=== PATIENT | female | born 1960 | race Caucasian/White ===

== ENCOUNTER → 2017-02-20 | Outpatient (CLI) | payer BC ==
[~2017-02-20] MED LIST: ALEVE220 MG PO; PREMPRO 0.3 MG1 EACH PO
== END ==
LOC: ULTRA 08:52
DX: R22.32 Localized swelling, mass and lump, left upper limb (principal)

== ENCOUNTER → 2021-01-22 | Outpatient (CLI) | payer BC, OTHER | LOC: MRI 10:06 | PROVIDERS: ATTEND Family Medicine | DX: M47.26 Other spondylosis with radiculopathy, lumbar region (principal); M51.16 Intervertebral disc disorders with radiculopathy, lumbar region; M48.061 Spinal stenosis, lumbar region without neurogenic claudication; M47.817 Spondylosis without myelopathy or radiculopathy, lumbosacral region; M51.37 Other intervertebral disc degeneration, lumbosacral region; M79.606 Pain in leg, unspecified; R29.898 Other symptoms and signs involving the musculoskeletal system ==

== ENCOUNTER → 2021-01-26 | Outpatient (CLI) | payer BC ==
[~2021-01-26] VITALS: Ht 170.2 cm; Wt 66.7 kg
[~2021-01-26] MED LIST changes: +CLARITIN10 M2 PO; +TERBINAFINE HC250 MG PO; +VITAMIN D3125 MC1 PO
--- NOTE | ~2021-01-26 | HPC ---
[facility] [place] [address] PAIN MANAGEMENT CONSULTATION Name: STACIE CARLIN Room #: REG [place] Sams.#: [id number] Admission: 01/26/21 Attend Phys: Jeremiah Galvan DO Discharge: Date of : 56 Report #: [id number] THIS REPORT FOR: cc: Noble Stratton MD, Rene P. MD Johnson, James E. DO ~ DOC #: [id number] cc: LIZANDRO Dumas DO DATE OF SERVICE: 01/26/2021 REFERRING PHYSICIAN: Colleen Wetzel NP CHIEF COMPLAINT: Low back pain, right lower extremity pain with paresthesias. HISTORY OF PRESENT ILLNESS: As you know, the patient is a very pleasant 60-year-old female who reports acute onset of low back pain, right lower extremity pain with paresthesias, presented on 12/24/2020. The patient denies any specific injury or trauma, but believes that her symptoms may have occurred after lifting 50 bags of mulch and 20 pounds of dirt while doing landscaping at her home. She states that after lifting the mulch, she began experiencing some burning sensation in the lower portion of back but continued to participate in activities, lifting the dirt, which then led to low back and right lower extremity symptoms. The patient states that intermittently over the past couple of years, she sought chiropractic manipulation about every 4-5 months to address this burning sensation she has had in the back. It resolves with this treatment. Unfortunately, chiropractic manipulation did not affect her current symptoms. She sought evaluation through her nurse practitioner, Colleen Wetzel, who referred the patient on to our service to undergo a lumbar epidural injection under fluoroscopic guidance. The patient did undergo imaging of the lumbar region which showed no significant changes from previous evaluations in 2009. The patient reports today her pain is continuous. She describes the pain as burning, throbbing, numbness and tingling. Places current pain score at 4/10, daily average of 4/10, worst pain is 9/10. The patient states the pain is exacerbated with cardio walking, improves with no cardio walking. She states that she can do every activity except for this high active walking pattern. She has been referred to our service to discuss interventional treatment options to address her recurrent lumbar radicular symptoms without changes on her MRI. PAST MEDICAL HISTORY: Seasonal allergies. PAST SURGICAL HISTORY: None. SOCIAL HISTORY: The patient denies tobacco, IV or illicit drug use. Admits to one alcohol beverage per day. 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 She is not receiving Workmen's Compensation nor is she trying to obtain disability benefits, not in litigation in regards to pain, unaccompanied at today's visit. REVIEW OF SYSTEMS: Positive for low back pain, right lower extremity pain with paresthesias. Seasonal allergies. All other review of systems negative per 12-point review of systems other than those listed in history of present illness. Pain impact score 25/70, mild to moderate interference of daily activities secondary to pain. ALLERGIES: No known drug allergies. CURRENT MEDICATIONS: Loratadine 10 mg once a day, terbinafine 250 mg once a day, cholecalciferol 125 mcg per day, naproxen 220 mg twice a day. IMAGING: MRI of the lumbar spine obtained 01/22/2021 shows disk degenerative changes and facet degenerative changes, most marked at the L3-L4 level with mild disk degeneration changes at the L4-L5 and L5-S1, central canal stenosis noted at L3-L4 measuring 7.6 mm. This is unchanged from previous evaluation of 06/05/2010. PHYSICAL EXAMINATION: VITAL SIGNS: Blood pressure 121/77, pulse 90, respiratory rate 16 and unlabored. The patient is 97% on room air. Height 5 feet 7 inches tall, weight 147 pounds, BMI calculated 23.0. GENERAL: Well-developed, well-nourished, well-hydrated 60-year-old female, appearing her stated age, placing current pain score anywhere 4-9/10 depending on activity. HEENT: Normocephalic, atraumatic. Pupils equal, round and responsive to light. The patient is deemed a good historian. She is wearing a mask in compliance with COVID-19 regulations. LUNGS: Clear. No wheezing, rhonchi or rales noted. CARDIOVASCULAR: Regular. No appreciable gallop or rub. EXTREMITIES: Show no clubbing, no cyanosis, no edema. MUSCULOSKELETAL: Lower extremity strength equal and symmetrical 5/5. Muscle bulk and tone equal and symmetrical in lower extremities. Seated straight leg raising negative. Supine straight leg raising is mildly positive on the right. Fabere's test is negative. Modified Gaenslen's positive for axial back pain. Ankle clonus negative. Babinski is negative. Deep tendon reflexes equal and symmetrical at patella and Achilles. Gait is mildly antalgic, favoring right lower extremity over left secondary to pain. ASSESSMENT: 1. Symptomatic lumbar radiculopathy. 2. Displacement of lumbar intervertebral disk with radiculopathy. 3. Spinal stenosis of the lumbar spine. [facility] [address] [place] [address] PAIN MANAGEMENT CONSULTATION Name: STACIE CARLIN Room #: REG KINGSTON Latrell.#: [id number] Admission: 01/26/21 Attend Phys: Jeremiah Galvan DO Discharge: Date of : 56 Report #: [id number] 4. Lumbosacral spondylosis with radiculopathy. 5. Lumbar degeneration. 6. Chronic intractable pain. PLAN: 1. Based on today's physical exam and history the patient has provided, the description the patient uses in regards to pain as well as the distribution of symptoms noted on examination, the likely source of the patient's pain is lumbar radiculopathy. The patient has had symptoms like this in the past, treated in 2016 successfully with an epidural injection under fluoroscopic guidance. I am pleased to advise the patient that there has been no significant changes in her MRI dated 01/22/2021 when compared to imaging studies of 06/05/2010. We had discussed with the patient today the treatment options we have for lumbar radicular symptoms involving the low back and right lower extremity. The following was discussed with the patient as treatment courses: We discussed physical therapy, stretching exercises and core strengthening as a treatment approach. The patient indicates that she is participating in exercise routine on a daily basis. She was given stretches and exercise routine through her primary care that she has been doing at home consistently without benefit. We discussed medication suggestions for treatment including amitriptyline, nortriptyline, Cymbalta, Lyrica or gabapentin. We discussed lumbar epidural injections under fluoroscopic guidance as an approach to treatment. We also discussed spinal cord stimulator therapy and surgical options. After reviewing risks and benefits of all proposed treatment options, the patient chose to begin with a lumbar epidural injection under fluoroscopic guidance. 2. We will have the patient return tomorrow to undergo a lumbar epidural injection under fluoroscopic guidance. We have requested the patient to clear her schedule for the remainder of the day tomorrow to recover from the injection itself and to improve efficacy. We will obtain any prior authorizations necessary through the third green party payer, so the patient can undergo the injection tomorrow. 3. No medication changes made at today's visit. The patient will continue current medical therapy as prior prescribed. 4. We plan to see the patient in followup visit tomorrow, 01/27/2021, to undergo lumbar epidural injection under fluoroscopic guidance. 5. We wish to thank the referring medical professional for the opportunity to see this patient in consultation. We will keep you apprised of the patient's response to the requested lumbar epidural injection. Again, we wish to thank you for the opportunity to see this patient in consultation. DO DUSTIN Waldron/[place] [address] PAIN MANAGEMENT CONSULTATION Name: RAEGANSTACIE Room #: REG [facility] Parker#: [id number] Admission: 01/26/21 Attend Phys: Jeremiah Galvan DO Discharge: Date of : 56 Report #: [id number] By: [id number] Jeremiah Galvan DO /jean
[2021-01-26 12:36] VITALS: BP 121/77
--- NOTE | 2021-01-26 12:54 | NUR ---
Pain Clinic Assessment: 1. History of Osteoarthritis: LUMBAR SPINE History of Rheumatoid Arthritis: Not Applicable 2. Height: 5 ft. 7 in. 170.2 cm. Weight: 147.0 lb. oz. 66.679 kg. Patient's BMI: 23.0 3. Vital Signs: BP: 121/77 Pulse: 90 Resp: 16 Temp: 02 Sat: 97 ECG Mon: 4. Pain Intensity: 4 TO 9 5. Fall Risk: Dizziness: N Needs help standing or walking: N Fallen in the last 3 months: N Fall risk comments: 6. Patient on Blood Thinner: None 7. History of Hypertension: N 8. Opioid Therapy greater than 6 weeks: N Opiate Contract Signed: 9. Risk Assessment Tool Provided: LOW-0 10. Functional Assessment Tool: 11. Recreational Drug Use: Never Drug Type: Tobacco Use: Never Smoker Tobacco Type: Amount or Packs/day: How Many Years: Alcohol Use: Yes Frequency: Weekly Quant: 1
== END ==
LOC: PAIN 09:38
PROVIDERS: ATTEND Anesthesiology Pain Medicine
DX: M51.16 Intervertebral disc disorders with radiculopathy, lumbar region (principal); M48.061 Spinal stenosis, lumbar region without neurogenic claudication; M47.26 Other spondylosis with radiculopathy, lumbar region; G89.4 Chronic pain syndrome; Z79.891 Long term (current) use of opiate analgesic; Z79.899 Other long term (current) drug therapy

== ENCOUNTER → 2021-01-27 | Outpatient (CLI) | payer BC ==
[~2021-01-27] VITALS: Ht 170.2 cm; Wt 66.7 kg
[2021-01-27 09:00] VITALS: BP 113/78
--- NOTE | 2021-01-29 12:39 | HPC ---
[facility] [place] [address] PAIN MANAGEMENT CONSULTATION Name: STACIE CARLIN Room #: REG [facility]INGSTON FrancoSarmadArelis.#: [id number] Admission: 01/27/21 Attend Phys: Jeremiah Galvan DO Discharge: Date of : 56 Report #: [id number] THIS REPORT FOR: cc: Noble Stratton MD, Rene P. MD Johnson, James E. DO ~ DOC #: [id number] cc: Noble Stratton MD, LIZANDRO Dumas DO DATE OF SERVICE: 01/27/2021 REFERRING PHYSICIAN: Dr. Noble Stratton. CHIEF COMPLAINT: Low back pain, right lower extremity pain and paresthesias. HISTORY OF PRESENT ILLNESS: As you know, the patient is a very pleasant 60-year-old female reporting acute onset of low back pain, right lower extremity pain with paresthesias, presented on 12/24/2020. Denying any specific injury or trauma. She believes her symptoms may be related to her lifting 50 bags of mulch and 20-pound bags of dirt drain landscaping in her home. She trialled conservative treatment, but did not see improvement in symptoms. She has tried chiropractic manipulation without benefit. She sought evaluation through her primary care physician who referred the patient on to our clinic to trial an epidural injection under fluoroscopic guidance. We saw the patient on 01/26/2021, diagnosed with a symptomatic lumbar radiculopathy secondary to a combination of spinal stenosis and displacement of lumbar intervertebral disk. She was established today's appointment to undergo lumbar epidural injection under fluoroscopic guidance. She is placing her current pain score at 4-9/10 depending on activity. ALLERGIES: NO KNOWN DRUG ALLERGIES. CURRENT MEDICATIONS: Loratadine, terbinafine, cholecalciferol, naproxen. SOCIAL HISTORY: The patient denies tobacco use. Denies IV or illicit drug use. Admits to 1 alcohol beverage per day. She is a retired teacher, retired about 6 months ago, unaccompanied today. IMAGING STUDIES: No new imaging available. PHYSICAL EXAMINATION: VITAL SIGNS: Blood pressure 113/78, pulse 70, respiratory rate 14 and unlabored. The patient is 100% on room air. GENERAL: Well-developed, well-nourished, well-hydrated 60-year-old female. She appears stated age, pain is rated anywhere from 4-9/10. HEENT: Normocephalic and atraumatic. Pupils are round. [place] [address] PAIN MANAGEMENT CONSULTATION Name: STACIE CARLIN Room #: REG [facility] Elena#: [id number] Admission: 01/27/21 Attend Phys: Jeremiah Galvan DO Discharge: Date of : 56 Report #: [id number] in compliance with COVID-19 regulations. EXTREMITIES: Show no clubbing, no cyanosis and no edema. MUSCULOSKELETAL: Lower extremity strength remains symmetrical 5/5 intact to light touch from L1 through S2 dermatomes. Seated straight leg raising negative. Supine straight leg raising is mildly positive on the right. ASSESSMENT: 1. Symptomatic lumbar radiculopathy. 2. Displacement of lumbar intervertebral disk with radiculopathy. 3. Spinal stenosis of lumbar spine. 4. Lumbosacral spondylosis with radiculopathy. 5. Lumbar degeneration. 6. Chronic intractable pain. PLAN: 1. The patient returns today in followup visit to undergo lumbar epidural injection under fluoroscopic guidance. The patient has been advised of the risks and the benefits of a lumbar epidural injection. These risks include but are not necessarily limited to bleeding, bruising, infection, worsening pain, no relief of pain, also risk of temporary or permanent muscle weakness, temporary or permanent nerve damage, possible paralysis, and . The patient states understood and wished to proceed. 2. No medication changes made at today's visit. The patient will continue current medical therapy as prior prescribed. 3. We will see the patient back in followup visit on an as needed basis for the next in the series of lumbar epidural injections. We are hopeful the patient will see good benefit with today's procedure. PROCEDURE NOTE DESCRIPTION OF PROCEDURE: L4-L5 interlaminar epidural steroid injection under fluoroscopic guidance. This is the first procedure of the first series that the patient is undergoing. After obtaining written consent, the patient was taken back to the fluoroscopy suite, placed in a prone position with pillow under the abdomen to decrease lumbar lordosis. The skin overlying the lumbosacral area was then prepped and draped in aseptic fashion. The L5-S1 vertebral interspace was then identified by AP fluoroscopy. The skin and subcutaneous tissue overlying the target site of injection was anesthetized with 3 ml 1% lidocaine. A(n) 20-gauge 3-1/2 inch Tuohy needle was then advanced under fluoroscopic guidance towards the epidural space using a right parasagittal approach. The epidural space was identified using loss of resistance to air technique. After negative aspiration for heme or cerebrospinal fluid, a total of 1 mL [address] [address] PAIN MANAGEMENT CONSULTATION Name: STACIE CARLIN Room #: REG [place] Parker#: [id number] Admission: 01/27/21 Attend Phys: Jeremiah Galvan DO Discharge: Date of : 56 Report #: [id number] omnipaque was injected. A lumbar epidurogram was confirmed using both AP and lateral fluoroscopy. After negative aspiration for heme or cerebrospinal fluid, 5 mL solution containing 2 mL 40 mg per mL 80 mg total triamcinolone along with 3 mL of lidocaine 1% was injected in increments. Contrast spread was noted posterior epidural space. The needle was then retracted approximately half way and needle tract flushed with 1 ml of lidocaine. Needle was then removed. There were no apparent sensory or motor deficits in the lower extremity following the procedure. a sterile bandage was placed over the injection site. The heart rate, pulse, oximetry and blood pressure were continuously monitored after the procedure. There were no apparent complications. The patient tolerated the procedure well and was carefully escorted to the recovery room in stable condition. There were no apparent complications. After meeting discharge criteria, the patient was then discharged home. Jeremiah Galvan DO JEJ/ALL <ELECTRONICALLY SIGNED> By: Jeremiah Galvan DO 01/29/21 [id number] Jeremiah Galvan DO /nt
== END | disposition home or self-care (01) ==
LOC: PAIN 06:57
PROVIDERS: ATTEND Anesthesiology Pain Medicine
DX: M51.16 Intervertebral disc disorders with radiculopathy, lumbar region (principal); M47.27 Other spondylosis with radiculopathy, lumbosacral region; M48.061 Spinal stenosis, lumbar region without neurogenic claudication; G89.29 Other chronic pain; Z79.899 Other long term (current) drug therapy